=== PATIENT | female | born 1950 | race Caucasian/White ===

== ENCOUNTER → 2016-11-09 | Outpatient (CLI) | payer OTHER, BC ==
[2016-11-09 12:50] LABS: BASO % 0.5 %; BASO ABS # 0.03 K/uL (0-0.2); COMPLETE YES; EOS % 3.1 %; HEMATOCRIT 39.6 % (37-47); IG% 0.2 %; LYMPH % 38.4 %; LYMPH ABS # 2.25 K/uL (1.2-3.4); MEAN CELL VOLUME 93.4 fL (80-100); MEAN CORPUSCULAR HEMOGLOBIN 30.4 pg (25-34); MEAN CORPUSCULAR HGB CONC 32.6 g/dl (32-36); MONO % 8.4 %; NEUT % 49.4 %; PLATELET COUNT 248 K/uL (130-400); RED BLOOD COUNT 4.24 M/uL (4.2-5.4); WHITE BLOOD COUNT 5.86 K/uL (4.8-10.8)
[2016-11-09 13:33] LABS: ALT/SGPT 54 U/L (12-78); AST/SGOT 23 U/L (15-37); BLOOD UREA NITROGEN 21 mg/dl (7-18); BUN/CREATININE RATIO 22.1 (10-20); CALCIUM 9.4 mg/dl (8.5-10.1); CARBON DIOXIDE 32 mmol/L (21-32); CHLORIDE 105 mmol/L (98-107); CREATININE 0.94 mg/dl (0.60-1.20); GLUCOSE 100 mg/dl (70-99); POTASSIUM 4.4 mmol/L (3.5-5.1); SODIUM 141 mmol/L (136-145)
[2016-11-09 13:44] LABS: CHOLESTEROL 162 mg/dl (0-200); CHOLESTEROL/HDL RATIO 2.9; HDL CHOLESTEROL 55 mg/dl; LDL CHOLESTEROL CALCULATED 71 mg/dl; TRIGLYCERIDES 178 mg/dl (0-150); VERY LOW DENSITY LIPOPROT CALC 36 mg/dl
== END | disposition home or self-care (01) ==
LOC: C.LABMFLN 09:30
PROVIDERS: ATTEND Family Medicine
DX: I10 Essential (primary) hypertension (principal); E03.9 Hypothyroidism, unspecified; D51.9 Vitamin B12 deficiency anemia, unspecified; E78.00 Pure hypercholesterolemia, unspecified; M81.0 Age-related osteoporosis without current pathological fracture; E55.9 Vitamin D deficiency, unspecified

== ENCOUNTER → 2017-01-31 | Outpatient (CLI) | payer OTHER, BC ==
[2017-01-31 14:40] LABS: BLOOD UREA NITROGEN 20 mg/dl (7-18); CREATININE 0.87 mg/dl (0.60-1.20)
== END | disposition home or self-care (01) ==
LOC: C.LABMFLN 07:57
PROVIDERS: ATTEND Radiology Radiation Oncology
DX: C77.9 Secondary and unspecified malignant neoplasm of lymph node, unspecified (principal); C80.1 Malignant (primary) neoplasm, unspecified

== ENCOUNTER → 2017-04-04 | Outpatient (CLI) | payer OTHER, BC ==
[2017-04-04 14:24] LABS: HEMATOCRIT 31.1 % (37-47); MEAN CORPUSCULAR HEMOGLOBIN 31.1 pg (25-34); MEAN CORPUSCULAR HGB CONC 33.8 g/dl (32-36); RED BLOOD COUNT 3.38 M/uL (4.2-5.4); WHITE BLOOD COUNT 2.34 K/uL (4.8-10.8)
[2017-04-04 14:49] LABS: ALT/SGPT 34 U/L (12-78); AST/SGOT 26 U/L (15-37); BLOOD UREA NITROGEN 15 mg/dl (7-18); BUN/CREATININE RATIO 20.6 (10-20); CALCIUM 8.3 mg/dl (8.5-10.1); CARBON DIOXIDE 28 mmol/L (21-32); CHLORIDE 108 mmol/L (98-107); CREATININE 0.73 mg/dl (0.60-1.20); GLUCOSE 102 mg/dl (70-99); SODIUM 142 mmol/L (136-145)
[2017-04-04 15:15] LABS: ALB/GLOB RATIO 0.9 (0.9-2); ALKALINE PHOSPHATASE 51 U/L (45-117); TOTAL IRON BINDING CAPACITY 201 mcg/dl (250-450)
[2017-04-04 15:37] LABS: MEAN PLATELET VOLUME 9.8 fL (7.4-10.4); PLATELET COUNT 84 K/uL (130-400)
[2017-04-04 15:39] LABS: COMPLETE YES; EOS % 12.4 %; GIANT PLATELETS 1+; LYMPH % 52.1 %; LYMPH ABS # 1.22 K/uL (1.2-3.4); NEUT % 23.5 %; PLT ESTIMATE DECREASED
== END | disposition home or self-care (01) ==
LOC: C.LABMFLN 07:39
PROVIDERS: ATTEND Family Medicine
DX: I10 Essential (primary) hypertension (principal); D51.9 Vitamin B12 deficiency anemia, unspecified; R74.0 Nonspecific elevation of levels of transaminase and lactic acid dehydrogenase [LDH]; R60.0 Localized edema; C79.9 Secondary malignant neoplasm of unspecified site; E55.9 Vitamin D deficiency, unspecified; I95.1 Orthostatic hypotension

== ENCOUNTER → 2017-09-28 | Outpatient (CLI) | payer OTHER, BC ==
[2017-09-28 13:18] LABS: BASO % 0.3 %; BASO ABS # 0.01 K/uL (0-0.2); EOS % 5.1 %; EOS ABS # 0.18 K/uL (0-0.5); HEMATOCRIT 35.8 % (37-47); HEMOGLOBIN 11.8 g/dL (12.0-16.0); IG# 0.01 K/uL (0.00-0.02); LYMPH % 23.4 %; LYMPH ABS # 0.82 K/uL (1.2-3.4); MEAN PLATELET VOLUME 10.8 fL (7.4-10.4); MONO % 10.3 %; MONO ABS # 0.36 K/uL (0.11-0.59); NEUT % 60.6 %; NEUT ABS # 2.13 K/uL (1.4-6.5); PLATELET COUNT 192 K/uL (130-400); RED CELL DISTRIBUTION WIDTH CV 13.5 % (11.5-14.5); RED CELL DISTRIBUTION WIDTH SD 46.5 fL (36.4-46.3); WHITE BLOOD COUNT 3.51 K/uL (4.8-10.8)
[2017-09-28 14:37] LABS: BLOOD UREA NITROGEN 18 mg/dl (7-18); CALCIUM 9.1 mg/dl (8.5-10.1); CARBON DIOXIDE 29 mmol/L (21-32); CREATININE 0.74 mg/dl (0.60-1.20); GLUCOSE 94 mg/dl (70-99); POTASSIUM 4.5 mmol/L (3.5-5.1); SODIUM 139 mmol/L (136-145)
[2017-09-28 14:42] LABS: TRANSFERRIN 186 mg/dl (200-360)
== END | disposition home or self-care (01) ==
LOC: C.LABMFLN 09:11
PROVIDERS: ATTEND Family Medicine
DX: I10 Essential (primary) hypertension (principal); K62.7 Radiation proctitis; M79.669 Pain in unspecified lower leg

== ENCOUNTER → 2018-01-19 | Outpatient (CLI) | payer OTHER, BC ==
[2018-01-19 12:46] LABS: BASO % 0.3 %; BASO ABS # 0.01 K/uL (0-0.2); EOS % 3.4 %; EOS ABS # 0.13 K/uL (0-0.5); HEMATOCRIT 34.9 % (37-47); HEMOGLOBIN 11.2 g/dL (12.0-16.0); IG# 0.01 K/uL (0.00-0.02); LYMPH % 23.6 %; MEAN CELL VOLUME 96.7 fL (80-100); MEAN CORPUSCULAR HGB CONC 32.1 g/dl (32-36); MEAN PLATELET VOLUME 10.7 fL (7.4-10.4); MONO % 11.8 %; MONO ABS # 0.45 K/uL (0.11-0.59); NEUT % 60.6 %; NEUT ABS # 2.31 K/uL (1.4-6.5); PLATELET COUNT 209 K/uL (130-400); RED CELL DISTRIBUTION WIDTH CV 13.3 % (11.5-14.5); RED CELL DISTRIBUTION WIDTH SD 46.8 fL (36.4-46.3); WHITE BLOOD COUNT 3.81 K/uL (4.8-10.8)
[2018-01-19 13:01] LABS: ALBUMIN 3.4 gm/dl (3.4-5.0); TOTAL PROTEIN 6.8 gm/dl (6.4-8.2)
== END | disposition home or self-care (01) ==
LOC: C.LABMFLN 09:13
PROVIDERS: ATTEND Family Medicine
DX: D64.9 Anemia, unspecified (principal); R74.0 Nonspecific elevation of levels of transaminase and lactic acid dehydrogenase [LDH]

== ENCOUNTER → 2018-02-07 | Outpatient (CLI) | payer OTHER, BC ==
[2018-02-07 14:09] LABS: ALBUMIN 3.4 gm/dl (3.4-5.0); ALKALINE PHOSPHATASE 73 U/L (45-117); ALT/SGPT 104 U/L (12-78); AST/SGOT 56 U/L (15-37)
== END | disposition home or self-care (01) ==
LOC: C.LABMFLN 09:11
PROVIDERS: ATTEND Internal Medicine Hematology & Oncology
DX: R94.5 Abnormal results of liver function studies (principal)

== ENCOUNTER → 2018-02-14 | Outpatient (CLI) | payer OTHER, BC ==
[2018-02-14 12:35] LABS: BASO % 0.3 %; BASO ABS # 0.01 K/uL (0-0.2); EOS % 3.1 %; EOS ABS # 0.11 K/uL (0-0.5); IG# 0.01 K/uL (0.00-0.02); MEAN CELL VOLUME 96.1 fL (80-100); MEAN CORPUSCULAR HEMOGLOBIN 31.2 pg (25-34); MEAN CORPUSCULAR HGB CONC 32.4 g/dl (32-36); MEAN PLATELET VOLUME 10.7 fL (7.4-10.4); MONO % 8.3 %; MONO ABS # 0.29 K/uL (0.11-0.59); NEUT ABS # 2.38 K/uL (1.4-6.5); PLATELET COUNT 208 K/uL (130-400); RED CELL DISTRIBUTION WIDTH CV 13.2 % (11.5-14.5); RED CELL DISTRIBUTION WIDTH SD 45.9 fL (36.4-46.3)
[2018-02-14 13:53] LABS: ALBUMIN 3.4 gm/dl (3.4-5.0); TOTAL PROTEIN 7.3 gm/dl (6.4-8.2)
[2018-02-14 14:26] LABS: HEP C IGG 13 YRS+OLDER_RFLX NEG (NEG)
[2018-02-15 03:49] LABS: HEPATITIS A IGM TC 51813E NON-REACTIVE (NON-REACTIVE); HEPATITIS B CORE IGM TC51854R NON-REACTIVE (NON-REACTIVE)
== END | disposition home or self-care (01) ==
LOC: C.LABMFLN 08:23
PROVIDERS: ATTEND Internal Medicine Hematology & Oncology
DX: R94.5 Abnormal results of liver function studies (principal)